=== PATIENT | female | born 1940 | race Caucasian/White ===

== ENCOUNTER → 2021-06-24 | Outpatient (CLI) | payer MEDICARE ==
[~2021-06-24] MED LIST: ASMANEX220 MC1 INH; ASPIRIN CHEWABL81 MG PO; CELEXA40 MG PO; DYMISTA NASAL S23 GM; LIPITOR TAB 2020 MG PO; MEDROL4 MG PO; NORVASC10 MG PO; OMEPRAZOLE40 MG PO; SINGULAIR10 MG PO; VENTOLIN HFA 66.7 GM INH
== END ==
LOC: KOH-I 11:36
DX: J18.9 Pneumonia, unspecified organism (principal)
CPT/HCPCS: 71046